=== PATIENT | male | born 1940 | race Caucasian/White ===

== ENCOUNTER 2017-02-04 11:34 | Outpatient (CLI) | payer MEDICARE, OTHER ==
--- NOTE | 2017-02-04 12:27 | Magnetic Resonance Report ---
MRI BRAIN WITHOUT CONTRAST INDICATION: Memory loss. COMPARISON: None similar. FINDINGS: Noncontrast multiplanar and multisequence MRI of the brain demonstrates age appropriate, symmetric mildly enlarged ventricles and mild to moderately enlarged sulci without acute infarct, hemorrhage, mass effect or midline shift. No abnormal extra-axial masses or fluid collections. Normal major intracranial vascular flow voids. Normal posterior fossa structures with symmetric seventh and eighth nerve complexes. Clear paranasal sinuses and mastoid air cells. Mild nasal septal deviation. Left cataract surgery. Normal midline structures without evidence of Chiari malformation. CONCLUSION: No acute intracranial MRI abnormality with age-appropriate atrophy and few other findings, as described. Thank you for the opportunity to participate in this patient's care.
== END 2017-02-04 11:35 | disposition home or self-care (01) ==
LOC: MRI 11:34
PROVIDERS: ATTEND Psychiatry & Neurology Neurology
DX: R41.3 Other amnesia (principal); J34.2 Deviated nasal septum; G31.89 Other specified degenerative diseases of nervous system; I10 Essential (primary) hypertension; E78.00 Pure hypercholesterolemia, unspecified; Z98.42 Cataract extraction status, left eye; Z87.891 Personal history of nicotine dependence
CPT/HCPCS: 70551

== ENCOUNTER 2017-03-06 11:52 | Emergency (ER) | payer MEDICARE ==
[2017-03-06 12:02] VITALS: BP 147/83
[2017-03-06 12:23] LABS: Bilirubin,Urine NEG (Negative); Blood,Urine NEG (Negative); Ketones,Urine NEG (Negative); Leukocyte Esterase,Urine NEG (Negative); Mucus,Urine 2+ /HPF; Nitrite,Urine NEG (Negative); Urobilinogen,Urine < 2.0 mg/dL (<2.0)
--- NOTE | 2017-03-06 18:43 | Emergency Department Report ---
Entered by LENARD CONTRERAS, acting as scribe for KARUNA CLARK NP. ED Back Pain/Injury HPI - General Chief Complaint: Abdominal Pain Stated Complaint: SEVERE R SIDE PAIN Time Seen by Provider: 03/06/17 14:32 Source: patient Mode of arrival: Ambulatory Limitations: No Limitations - History of Present Illness Initial Comments: This is a 76 y/o male, nontoxic, well nourished in appearance, no acute signs of distress with a PMHx of arthritis, diabetes mellitus, and HTN presents to the ED c/o an acute episode of right low back pain that began 2 days ago. Rates pain a 7/10 in severity, which he describes as sharp in quality. Aggravated with movement and alleviated with immobilization. Patient states he currently has no pain. Denies fever, chills, chest pain, headache or dizziness, abdominal pain, nausea, vomiting, dysuria, urgency, frequency, hematura, incontinence, numbness, and tingling. Notes Hx of right low back pain. Reports he's been helping a neighbor move furniture recently, which may have caused his pain. NKDA. HUMMEL Complaint: back pain (right low back) Onset/Timin -: days(s) Similar Symptoms Previously: Yes Place: home Radiation: none Severity: moderate Severity scale (0 -10): 7 Quality: sharp Consistency: intermittent Improves With: immobilization Worsens With: movement Context: while lifting Associated Symptoms: denies other symptoms. denies: confusion, weakness, chest pain, numbness, difficulty walking, cough, difficulty urinating, diaphoresis, incontinence, fever/chills, constipation, headaches, abdominal pain, loss of appetite, malaise, nausea/vomiting, rash, seizure, shortness of breath, syncope - Related Data Home Medications Medication Instructions Recorded Confirmed Last Taken Atorvastatin [Lipitor] 40 mg PO QHS 10/28/13 10/28/13 10/27/13 Ginkgo Biloba 120 mg PO DAILY 10/28/13 10/28/13 10/27/13 Insulin Glargine,Hum.rec.anlog 50 unit SQ QHS 10/28/13 10/28/13 10/27/13 [Lantus Solostar] Insulin Lispro [Humalog Kwikpen] 20 units SQ BID 10/28/13 10/28/13 10/27/13 Lisinopril 10 mg PO QDAY 10/28/13 10/28/13 10/28/13 05:30 metFORMIN [Glucophage] 1,000 mg PO HS 10/28/13 10/28/13 10/27/13 metFORMIN [Glucophage] 500 mg PO QAM 10/28/13 10/28/13 10/27/13 Previous Rx's Medication Instructions Recorded Last Taken Type Acetaminophen [Arthritis Pain 650 mg PO Q6H #20 tablet.er 03/06/17 Unknown Rx Relief] Cyclobenzaprine HCl [Flexeril 5 MG 5 mg PO TID #15 tab 03/06/17 Unknown Rx TAB] Allergies Allergy/AdvReac Type Severity Reaction Status Date / Time No Known Allergies Allergy Verified 10/28/13 06:30 ED Review of Systems Comment: All other systems reviewed and negative Constitutional: denies: chills, fever Eyes: denies: eye pain, eye discharge, vision change ENT: denies: ear pain, throat pain Respiratory: denies: cough, orthopnea, shortness of breath, SOB with exertion, SOB at rest, stridor, wheezing Cardiovascular: denies: chest pain, palpitations, dyspnea on exertion, orthopnea , edema, syncope, paroxysmal nocturnal dyspnea Endocrine: no symptoms reported Gastrointestinal: denies: abdominal pain, nausea, vomiting, diarrhea Genitourinary: denies: urgency, dysuria, frequency, hematuria, discharge, testicular pain, testicular mass Musculoskeletal: back pain (right low back). denies: joint swelling, arthralgia , myalgia Skin: denies: rash, lesions Neurological: denies: headache, weakness, numbness, paresthesias Psychiatric: denies: anxiety, depression Hematological/Lymphatic: denies: easy bleeding, easy bruising ED Past Medical Hx - Past Medical History Previous Medical History?: Yes Hx Hypertension: Yes (2010) Hx Diabetes: Yes Hx Arthritis: Yes - Surgical History Past Surgical History?: Yes Hx Appendectomy: Yes - Social History Smoking Status: Former Smoker Substance Use Type: None - Medications Home Medications: Home Medications Medication Instructions Recorded Confirmed Last Taken Type Atorvastatin [Lipitor] 40 mg PO QHS 10/28/13 10/28/13 10/27/13 History Ginkgo Biloba 120 mg PO DAILY 10/28/13 10/28/13 10/27/13 History Insulin Glargine,Hum.rec.anlog 50 unit SQ QHS 10/28/13 10/28/13 10/27/13 History [Lantus Solostar] Insulin Lispro [Humalog Kwikpen] 20 units SQ BID 10/28/13 10/28/13 10/27/13 History Lisinopril 10 mg PO QDAY 10/28/13 10/28/13 10/28/13 05:30 History metFORMIN [Glucophage] 1,000 mg PO HS 10/28/13 10/28/13 10/27/13 History metFORMIN [Glucophage] 500 mg PO QAM 10/28/13 10/28/13 10/27/13 History Acetaminophen [Arthritis Pain 650 mg PO Q6H #20 tablet.er 03/06/17 Unknown Rx Relief] Cyclobenzaprine HCl [Flexeril 5 MG 5 mg PO TID #15 tab 03/06/17 Unknown Rx TAB] ED Physical Exam - General Limitations: No Limitations General appearance: alert, in no apparent distress - Head Head exam: Present: atraumatic, normocephalic, normal inspection - Eye Eye exam: Present: normal appearance, PERRL, EOMI. Absent: scleral icterus, conjunctival injection, nystagmus, periorbital swelling, periorbital tenderness Pupils: Present: normal accommodation - ENT ENT exam: Present: normal exam, normal orophraynx, mucous membranes moist, TM's normal bilaterally, normal external ear exam - Neck Neck exam: Present: normal inspection, full ROM. Absent: tenderness, meningismus, lymphadenopathy - Respiratory Respiratory exam: Present: normal lung sounds bilaterally. Absent: respiratory distress, wheezes, rales, rhonchi, stridor, chest wall tenderness, accessory muscle use, decreased breath sounds, prolonged expiratory - Cardiovascular Cardiovascular Exam: Present: regular rate, normal rhythm, normal heart sounds. Absent: bradycardia, tachycardia, irregular rhythm, systolic murmur, diastolic murmur, rubs, gallop - GI/Abdominal GI/Abdominal exam: Present: soft, normal bowel sounds. Absent: distended, tenderness, guarding, rebound, rigid - Rectal Rectal exam: Present: deferred - Extremities Exam Extremities exam: Present: normal inspection, full ROM, normal capillary refill. Absent: tenderness, pedal edema, joint swelling, calf tenderness - Back Exam Back exam: Present: normal inspection, full ROM, tenderness (right lumbar paraspinal), paraspinal tenderness (right lumbar). Absent: CVA tenderness (R), CVA tenderness (L), muscle spasm, vertebral tenderness, rash noted - Neurological Exam Neurological exam: Present: alert, oriented X3, CN II-XII intact, normal gait ( ambulatory with assistance of a cane due to right low back pain), reflexes normal. Absent: motor sensory deficit - Psychiatric Psychiatric exam: Present: normal affect, normal mood - Skin Skin exam: Present: warm, dry, intact. Absent: rash ED Course Vital Signs 03/06/17 11:58 Temperature 99 F Pulse Rate 68 Respiratory 24 Rate Blood Pressure 147/83 O2 Sat by Pulse 100 Oximetry - Reevaluation(s) Reevaluation #1: 03/06/17 16:02 Patient is able to speak in full sentences with no signs of distress noted. ED Disposition Clinical Impression: Low back strain Qualifiers: Encounter type: initial encounter Qualified Code(s): S39.012A - Strain of muscle, fascia and tendon of lower back, initial encounter Disposition: DC-01 TO HOME OR SELFCARE Is pt being admited?: No Does the pt Need Aspirin: No Condition: Stable Instructions: Low Back Strain (ED), Acetaminophen (By mouth), Cyclobenzaprine ( By mouth) Additional Instructions: follow-up with your primary care doctor in 3-5 days or if symptoms worsen such as bladder or bowel stability, chest pain, short of breath, numbness or tingling sensation in extremities, headache, dizziness, visual changes, nausea vomiting, or abdominal pain, return back to emergency room as was possible. Take acetaminophen and Flexeril as prescribed. Do not operate heavy machinery while taking Flexeril due to sedation Prescriptions: Acetaminophen [Arthritis Pain Relief] 650 mg PO Q6H #20 tablet.er Cyclobenzaprine HCl [Flexeril 5 MG TAB] 5 mg PO TID #15 tab Referrals: IVETT CARMEN MD [Primary Care Provider] - 3-5 Days PONCHO BENITEZ MD [Staff Physician] - 3-5 Days [facility] [Outside] - 3-5 Days [facility] [Outside] - 3-5 Days SCOTTIE PACHECO MD [Staff Physician] - 3-5 Days This documentation as recorded by the scribe,DIANE,LENARD,accurately reflects the service I personally performed and the decisions made by me,KARUNA CLARK, BARTOLO.
== END 2017-03-06 16:15 | disposition home or self-care (01) ==
LOC: ED 11:52
DX: S39.012A Strain of muscle, fascia and tendon of lower back, initial encounter (principal); I10 Essential (primary) hypertension; E11.9 Type 2 diabetes mellitus without complications; M19.90 Unspecified osteoarthritis, unspecified site; Z87.891 Personal history of nicotine dependence; Z79.4 Long term (current) use of insulin; X58.XXXA Exposure to other specified factors, initial encounter; Y93.89 Activity, other specified; Y92.89 Other specified places as the place of occurrence of the external cause; Y99.8 Other external cause status
CPT/HCPCS: 81001; 99283

== ENCOUNTER 2017-07-28 16:36 | Emergency (ER) | payer MEDICARE ==
[2017-07-28 17:11] VITALS: BP 170/89
[2017-07-28] MEDS ORDERED: NORCO 5/325 PO ONE (21:46)
--- NOTE | 2017-07-28 21:47 | Emergency Department Report ---
ED ENT HPI - General Chief complaint: Dental/Oral Stated complaint: TOOTHACHE Time Seen by Provider: 07/28/17 21:08 Source: patient Mode of arrival: Ambulatory Limitations: No Limitations - History of Present Illness Initial comments: 77M PMH Dmt2, HTN p/w dental cavities presents with complaint of left upper dental pain with small dental abscess for approximately 2 days. Patient denies any difficulty swallowing states it is slightly worse when chewing food. Denies possible blood drainage from mouth. Speaking in full sentences. Denies any fevers or chills. States he took Tylenol at home with minimal relief of toothache. States he has a follow-up with a dentist tomorrow. States he has had a cavity in this region for some time and not yet had it addressed. MD complaint: tooth pain Onset/Timin -: days(s) Location: tooth # 1 - small abscess here Quality: aching Consistency: constant Improves with: none Worsens with: eating Context- Dental: history of dental caries, poor dental care Associated Symptoms: gum swelling, toothache - Related Data Home Medications Medication Instructions Recorded Confirmed Last Taken Atorvastatin [Lipitor] 40 mg PO QHS 10/28/13 10/28/13 10/27/13 Ginkgo Biloba 120 mg PO DAILY 10/28/13 10/28/13 10/27/13 Insulin Glargine,Hum.rec.anlog 50 unit SQ QHS 10/28/13 10/28/13 10/27/13 [Lantus Solostar] Insulin Lispro [Humalog Kwikpen] 20 units SQ BID 10/28/13 10/28/13 10/27/13 Lisinopril 10 mg PO QDAY 10/28/13 10/28/13 10/28/13 05:30 metFORMIN [Glucophage] 1,000 mg PO HS 10/28/13 10/28/13 10/27/13 metFORMIN [Glucophage] 500 mg PO QAM 10/28/13 10/28/13 10/27/13 Previous Rx's Medication Instructions Recorded Last Taken Type Acetaminophen [Arthritis Pain 650 mg PO Q6H #20 tablet.er 03/06/17 Unknown Rx Relief] Cyclobenzaprine HCl [Flexeril 5 MG 5 mg PO TID #15 tab 03/06/17 Unknown Rx TAB] Acetaminophen/Codeine [Tylenol 1 tab PO Q6H PRN #12 tab 07/28/17 Unknown Rx /Codeine # 3 tab] Amoxicillin [Trimox CAP] 500 mg PO Q8H #30 capsule 07/28/17 Unknown Rx Benzocaine [Orajel Liquid 20%] 1 ml MM Q6HR PRN #1 bottle 07/28/17 Unknown Rx Chlorhexidine Mouthwash [Peridex] 15 ml MM BID #1 bottle 07/28/17 Unknown Rx Allergies Allergy/AdvReac Type Severity Reaction Status Date / Time No Known Allergies Allergy Verified 07/28/17 17:09 ED Dental HPI - General Chief complaint: Dental/Oral Stated complaint: TOOTHACHE Time Seen by Provider: 07/28/17 21:08 Source: patient Mode of arrival: Ambulatory Limitations: No Limitations - Related Data Home Medications Medication Instructions Recorded Confirmed Last Taken Atorvastatin [Lipitor] 40 mg PO QHS 10/28/13 10/28/13 10/27/13 Ginkgo Biloba 120 mg PO DAILY 10/28/13 10/28/13 10/27/13 Insulin Glargine,Hum.rec.anlog 50 unit SQ QHS 10/28/13 10/28/13 10/27/13 [Lantus Solostar] Insulin Lispro [Humalog Kwikpen] 20 units SQ BID 10/28/13 10/28/13 10/27/13 Lisinopril 10 mg PO QDAY 10/28/13 10/28/13 10/28/13 05:30 metFORMIN [Glucophage] 1,000 mg PO HS 10/28/13 10/28/13 10/27/13 metFORMIN [Glucophage] 500 mg PO QAM 10/28/13 10/28/13 10/27/13 Previous Rx's Medication Instructions Recorded Last Taken Type Acetaminophen [Arthritis Pain 650 mg PO Q6H #20 tablet.er 03/06/17 Unknown Rx Relief] Cyclobenzaprine HCl [Flexeril 5 MG 5 mg PO TID #15 tab 03/06/17 Unknown Rx TAB] Acetaminophen/Codeine [Tylenol 1 tab PO Q6H PRN #12 tab 07/28/17 Unknown Rx /Codeine # 3 tab] Amoxicillin [Trimox CAP] 500 mg PO Q8H #30 capsule 07/28/17 Unknown Rx Benzocaine [Orajel Liquid 20%] 1 ml MM Q6HR PRN #1 bottle 07/28/17 Unknown Rx Chlorhexidine Mouthwash [Peridex] 15 ml MM BID #1 bottle 07/28/17 Unknown Rx Allergies Allergy/AdvReac Type Severity Reaction Status Date / Time No Known Allergies Allergy Verified 07/28/17 17:09 ED Review of Systems ROS: Stated complaint: TOOTHACHE Other details as noted in HPI Constitutional: denies: chills, fever Eyes: denies: eye pain, eye discharge, vision change ENT: dental pain. denies: ear pain, throat pain Respiratory: denies: cough, shortness of breath, wheezing Cardiovascular: denies: chest pain, palpitations Endocrine: no symptoms reported Gastrointestinal: denies: abdominal pain, nausea, diarrhea Genitourinary: denies: urgency, dysuria Musculoskeletal: denies: back pain, joint swelling, arthralgia Skin: denies: rash, lesions Neurological: denies: headache, weakness, paresthesias Psychiatric: denies: anxiety, depression Hematological/Lymphatic: denies: easy bleeding, easy bruising ED Past Medical Hx - Past Medical History Hx Hypertension: Yes (2010) Hx Diabetes: Yes Hx Arthritis: Yes - Surgical History Hx Appendectomy: Yes - Social History Smoking Status: Never Smoker Substance Use Type: Alcohol - Medications Home Medications: Home Medications Medication Instructions Recorded Confirmed Last Taken Type Atorvastatin [Lipitor] 40 mg PO QHS 10/28/13 10/28/13 10/27/13 History Ginkgo Biloba 120 mg PO DAILY 10/28/13 10/28/13 10/27/13 History Insulin Glargine,Hum.rec.anlog 50 unit SQ QHS 10/28/13 10/28/13 10/27/13 History [Lantus Solostar] Insulin Lispro [Humalog Kwikpen] 20 units SQ BID 10/28/13 10/28/13 10/27/13 History Lisinopril 10 mg PO QDAY 10/28/13 10/28/13 10/28/13 05:30 History metFORMIN [Glucophage] 1,000 mg PO HS 10/28/13 10/28/13 10/27/13 History metFORMIN [Glucophage] 500 mg PO QAM 10/28/13 10/28/13 10/27/13 History Acetaminophen [Arthritis Pain 650 mg PO Q6H #20 tablet.er 03/06/17 Unknown Rx Relief] Cyclobenzaprine HCl [Flexeril 5 MG 5 mg PO TID #15 tab 03/06/17 Unknown Rx TAB] Acetaminophen/Codeine [Tylenol 1 tab PO Q6H PRN #12 tab 07/28/17 Unknown Rx /Codeine # 3 tab] Amoxicillin [Trimox CAP] 500 mg PO Q8H #30 capsule 07/28/17 Unknown Rx Benzocaine [Orajel Liquid 20%] 1 ml MM Q6HR PRN #1 bottle 07/28/17 Unknown Rx Chlorhexidine Mouthwash [Peridex] 15 ml MM BID #1 bottle 07/28/17 Unknown Rx ED Physical Exam - General Limitations: No Limitations General appearance: alert, in no apparent distress - Head Head exam: Present: atraumatic, normocephalic - Eye Eye exam: Present: normal appearance, PERRL, EOMI - ENT ENT exam: Present: mucous membranes moist - Expanded ENT Exam Expanded Teeth exam: Present: dental caries, dental tenderness # 1 - Dental Tenderness (small dental abscess here) - Neck Neck exam: Present: normal inspection - Respiratory Respiratory exam: Present: normal lung sounds bilaterally. Absent: respiratory distress - Cardiovascular Cardiovascular Exam: Present: regular rate, normal rhythm. Absent: systolic murmur, diastolic murmur, rubs, gallop - GI/Abdominal GI/Abdominal exam: Present: soft, normal bowel sounds - Rectal Rectal exam: Present: deferred - Extremities Exam Extremities exam: Present: normal inspection - Back Exam Back exam: Present: normal inspection - Neurological Exam Neurological exam: Present: alert, oriented X3 - Psychiatric Psychiatric exam: Present: normal affect, normal mood - Skin Skin exam: Present: warm, dry, intact, normal color. Absent: rash ED Course Vital Signs 07/28/17 17:09 Temperature 98.6 F Pulse Rate 74 Respiratory 18 Rate Blood Pressure 170/89 O2 Sat by Pulse 98 Oximetry ED Medical Decision Making - Medical Decision Making A/P: dental cavities, toothache, dental abscess 1- amoxicillin ten-day course, Orajel when necessary, Peridex mouthwash daily basis, short course codeine when necessary 2- I provided patient with information for multiple dental clinics to follow up and stressed the importance of dental follow-up as he has multiple cavities that require dental fixation or instrumentation 3- no clinical signs of facial abscess, no Jesús's angina, no induration or cellulitis of floor of mouth or tongue 4- patient able to tolerate by mouth before discharge 5- no signs of facial infection. Advised patient that if he does not take antibiotics with follow-up with a dentist as soon as possible that a can result in potentially serious or dangerous infection to develop in jaw or face. Patient states that he understood these instructions. I advised patient to return to the ED for any persistent unrelenting nausea or vomiting fever or chills or headaches. Critical care attestation.: If time is entered above; I have spent that time in minutes in the direct care of this critically ill patient, excluding procedure time. ED Disposition Clinical Impression: Dental abscess Disposition: DC- TO HOME OR SELFCARE Is pt being admited?: No Does the pt Need Aspirin: No Condition: Stable Instructions: Dental Abscess (ED), Dental Caries (ED), Toothache (ED) Prescriptions: Acetaminophen/Codeine [Tylenol /Codeine # 3 tab] 1 tab PO Q6H PRN #12 tab PRN Reason: Pain Amoxicillin [Trimox CAP] 500 mg PO Q8H #30 capsule Benzocaine [Orajel Liquid 20%] 1 ml MM Q6HR PRN #1 bottle PRN Reason: Toothache Chlorhexidine Mouthwash [Peridex] 15 ml MM BID #1 bottle Referrals: [facility] [Outside] - 3-5 Days Forms: Accompanied Note Time of Disposition: 21:46
== END 2017-07-28 22:05 | disposition home or self-care (01) ==
LOC: ED 16:36
DX: K04.7 Periapical abscess without sinus (principal); I10 Essential (primary) hypertension; E11.9 Type 2 diabetes mellitus without complications
CPT/HCPCS: 99282

== ENCOUNTER 2020-10-27 12:55 | Emergency (ER) | payer MEDICARE ==
--- NOTE | 2020-10-27 13:24 | Event Note ---
ED Screening Note Date of service: 10/27/20 Time: 13:23 ED Screening Note: 80-year-old male patient with history of diabetes, hypertension, and arthritis presents to emergency department with complaints of nontraumatic left lower quadrant abdominal pain starting last night. No history of similar symptoms. No fever. No vomiting or diarrhea. No urinary changes. General: Awake, appropriately interactive, no acute distress. Neck: Supple. Full range of motion intact. Cardiovascular: Normal peripheral perfusion. Pulmonary: No respiratory distress. Patient is speaking normally without use of accessory muscles. Abdomen: Left lower quadrant tenderness without guarding, rigidity, or rebound. No CVA tenderness. No distention. Skin: No apparent rashes or lesions. Neurological: No facial asymmetry. Speech is clear. Follows commands. Patient is alert and oriented. Musculoskeletal: Moves all four extremities spontaneously with normal range of motion. Psych: Cooperative. Appropriate mood and affect. I have greeted and performed a focused rapid initial assessment of this patient. A comprehensive ED assessment and evaluation of the patient, analysis of all test results, and completion of the medical decision-making process will be conducted by additional ED providers. This initial assessment/diagnostic orders/clinical plan/treatment(s) is/are subject to change based on patients health status, clinical progression and re-assessment. Further treatment and workup at subsequent clinical provider's discretion. Patient/guardian urged not to elope from the ED as their condition may be serious if not clinically assessed and managed.
[2020-10-27 14:35] LABS: Basophils % (Auto) 0.6 % (0.0-1.8); Eosinophils # (Auto) 0.4 K/mm3 (0.0-0.4); Eosinophils % (Auto) 6.7 % (0.0-4.3); Hematocrit 43.9 % (35.5-45.6); Hemoglobin 14.9 gm/dl (11.8-15.2); Lymphocytes # (Auto) 1.6 K/mm3 (1.2-5.4); Lymphocytes % (Auto) 28.4 % (13.4-35.0); Mean Corpuscular HGB Conc 34 % (32-34); Mean Corpuscular Volume 93 fl (84-94); Monocytes # (Auto) 0.8 K/mm3 (0.0-0.8); Monocytes % (Auto) 13.8 % (0.0-7.3); Platelet Count 218 K/mm3 (140-440); Red Blood Count 4.72 M/mm3 (3.65-5.03); Red Cell Distribution Width 13.1 % (13.2-15.2)
[2020-10-27 14:58] LABS: Alanine Aminotransferase 11 units/L (7-56); Albumin 3.9 g/dL (3.9-5); BUN/Creatinine Ratio 14; Blood Urea Nitrogen 14 mg/dL (9-20); Calcium 8.6 mg/dL (8.4-10.2); Hemolysis Index 11
--- NOTE | 2020-10-27 16:31 | Emergency Department Report ---
ED General Adult HPI - General Chief complaint: Abdominal Pain Stated complaint: STOMACH PAIN LT SIDE PUI?: No Time Seen by Provider: 10/27/20 16:10 Source: patient, family, RN notes reviewed, old records reviewed Mode of arrival: Ambulatory Limitations: No Limitations - History of Present Illness Initial comments: The patient was evaluated in the emergency department for symptoms described in the history of present illness. He/she was evaluated in the context of the global COVID-19 pandemic, which necessitated consideration that the patient might be at risk for infection with the virus that causes COVID-19. Institutional protocols and algorithms that pertain to the evaluation of patients at risk for COVID-19 are in a state of rapid change based on information released by regulatory bodies including the CDC and federal and state organizations. These policies and algorithms were followed during the patient's care in the emergency department. Please note that these policies, procedures and recommendations changed on a rapid basis. During the history and physical examination, I am chaperoned by nurse NAY WILSON Primary CARE doctor: Dr. Diego aMtthews Past medical history: Distant history of appendectomy, diabetes, hypertension and high cholesterol. The patient is a pleasant 80-year-old gentleman. He presents to the ER today with a complaint of nontraumatic left lower quadrant pain. This started last night. It is now resolved. The patient denies headache, neck pain, chest pain, shortness of breath, testicular pain, nausea, vomiting, diarrhea and hematuria. He denies loss of taste and smell. He states his pain is resolved. He states he feels like he is back to his baseline. -: Sudden, During the night Location: abdomen Radiation: non-radiation Consistency: now resolved Improves with: none Worsens with: none Associated Symptoms: denies other symptoms - Related Data Home Medications Medication Instructions Recorded Confirmed Last Taken Atorvastatin [Lipitor] 40 mg PO QHS 10/28/13 10/28/13 10/27/13 Ginkgo Biloba 120 mg PO DAILY 10/28/13 10/28/13 10/27/13 Insulin Glargine,Hum.rec.anlog 50 unit SQ QHS 10/28/13 10/28/13 10/27/13 [Lantus Solostar] Insulin Lispro [Humalog Kwikpen] 20 units SQ BID 10/28/13 10/28/13 10/27/13 Lisinopril 10 mg PO QDAY 10/28/13 10/28/13 10/28/13 05:30 metFORMIN [Glucophage] 1,000 mg PO HS 10/28/13 10/28/13 10/27/13 metFORMIN [Glucophage] 500 mg PO QAM 10/28/13 10/28/13 10/27/13 Previous Rx's Medication Instructions Recorded Last Taken Type Acetaminophen [Arthritis Pain 650 mg PO Q6H #20 tablet.er 03/06/17 Unknown Rx Relief] Cyclobenzaprine HCl [Flexeril 5 MG 5 mg PO TID #15 tab 03/06/17 Unknown Rx TAB] Acetaminophen/Codeine [Tylenol 1 tab PO Q6H PRN #12 tab 07/28/17 Unknown Rx /Codeine # 3 tab] Amoxicillin [Trimox CAP] 500 mg PO Q8H #30 capsule 07/28/17 Unknown Rx Benzocaine [Orajel Liquid 20%] 1 ml MM Q6HR PRN #1 bottle 07/28/17 Unknown Rx Chlorhexidine Mouthwash [Peridex] 15 ml MM BID #1 bottle 07/28/17 Unknown Rx Allergies Allergy/AdvReac Type Severity Reaction Status Date / Time No Known Allergies Allergy Verified 10/27/20 13:21 ED Review of Systems ROS: Stated complaint: STOMACH PAIN LT SIDE Other details as noted in HPI Comment: All other systems reviewed and negative Gastrointestinal: abdominal pain ED Past Medical Hx - Past Medical History Hx Hypertension: Yes (2010) Hx Diabetes: Yes Hx Arthritis: Yes - Surgical History Hx Appendectomy: Yes - Social History Smoking Status: Never Smoker Substance Use Type: None - Medications Home Medications: Home Medications Medication Instructions Recorded Confirmed Last Taken Type Atorvastatin [Lipitor] 40 mg PO QHS 10/28/13 10/28/13 10/27/13 History Ginkgo Biloba 120 mg PO DAILY 10/28/13 10/28/13 10/27/13 History Insulin Glargine,Hum.rec.anlog 50 unit SQ QHS 10/28/13 10/28/13 10/27/13 History [Lantus Solostar] Insulin Lispro [Humalog Kwikpen] 20 units SQ BID 10/28/13 10/28/13 10/27/13 History Lisinopril 10 mg PO QDAY 10/28/13 10/28/13 10/28/13 05:30 History metFORMIN [Glucophage] 1,000 mg PO HS 10/28/13 10/28/13 10/27/13 History metFORMIN [Glucophage] 500 mg PO QAM 10/28/13 10/28/13 10/27/13 History Acetaminophen [Arthritis Pain 650 mg PO Q6H #20 tablet.er 03/06/17 Unknown Rx Relief] Cyclobenzaprine HCl [Flexeril 5 MG 5 mg PO TID #15 tab 03/06/17 Unknown Rx TAB] Acetaminophen/Codeine [Tylenol 1 tab PO Q6H PRN #12 tab 07/28/17 Unknown Rx /Codeine # 3 tab] Amoxicillin [Trimox CAP] 500 mg PO Q8H #30 capsule 07/28/17 Unknown Rx Benzocaine [Orajel Liquid 20%] 1 ml MM Q6HR PRN #1 bottle 07/28/17 Unknown Rx Chlorhexidine Mouthwash [Peridex] 15 ml MM BID #1 bottle 07/28/17 Unknown Rx ED Physical Exam - General Limitations: No Limitations General appearance: alert, in no apparent distress, obese - Head Head exam: Present: atraumatic, normocephalic - Eye Eye exam: Present: normal appearance, EOMI. Absent: nystagmus - ENT ENT exam: Present: normal exam, normal orophraynx, mucous membranes moist, normal external ear exam - Neck Neck exam: Present: normal inspection, full ROM. Absent: tenderness, meningismus - Respiratory Respiratory exam: Present: normal lung sounds bilaterally. Absent: respiratory distress, wheezes, rales, rhonchi, stridor, decreased breath sounds - Cardiovascular Cardiovascular Exam: Present: regular rate, normal rhythm, normal heart sounds. Absent: bradycardia, tachycardia, irregular rhythm, systolic murmur, diastolic murmur, rubs, gallop - GI/Abdominal GI/Abdominal exam: Present: soft, normal bowel sounds. Absent: distended, tenderness, guarding, rigid, pulsatile mass - Rectal Rectal exam: Present: deferred - exam: Present: normal inspection, other (There is normal testicular lie. There is normal cremasteric reflex. There is no testicular tenderness. There is no testicular swelling). Absent: testicular tenderness External exam: Present: normal external exam, other (Chaperoned by NAY WILSON) - Extremities Exam Extremities exam: Present: normal inspection, full ROM, other (2+ pulses noted in the bilateral upper and lower extremities. There is no palpable cord. negative Homans sign. Muscular compartments are soft. The pelvis is stable.). Absent: calf tenderness - Back Exam Back exam: Present: normal inspection, full ROM. Absent: tenderness, CVA tenderness (R), CVA tenderness (L), paraspinal tenderness, vertebral tenderness - Neurological Exam Neurological exam: Present: alert, oriented X3, normal gait, other (No facial droop. Tongue midline. Extraocular movements intact bilaterally. Facial sensation intact to light touch in V1, V2, V3 distribution bilaterally. 5 and a 5 strength in 4 extremities. Sensation intact to light touch in 4 extremities.). Absent: motor sensory deficit - Psychiatric Psychiatric exam: Present: normal affect, normal mood - Skin Skin exam: Present: warm, dry, intact, normal color. Absent: rash ED Course Vital Signs 10/27/20 10/27/20 10/27/20 13:24 13:26 16:14 Temperature 98.2 F Pulse Rate 72 55 L Respiratory 20 14 Rate Blood Pressure 144/85 O2 Sat by Pulse 100 97 Oximetry 10/27/20 16:16 Temperature Pulse Rate 57 L Respiratory 15 Rate Blood Pressure 130/62 O2 Sat by Pulse Oximetry - Reevaluation(s) Reevaluation #1: 10/27/20 17:13 Differential diagnosis, including but not limited to: Colitis, diverticulitis, constipation, renal colic, perforated viscus, obstruction Assessment and plan: 80-year-old gentleman, who was afebrile, with reassuring vital signs, with a complaint of left lower quadrant pain. The patient has a soft benign abdomen, with an unremarkable and normal genitourinary exam, with no evidence of hernia, and he does not appear to be in any acute distress. Laboratory studies unremarkable for acute pathology, incidental hyperglycemia asymptomatic, and patient and are counseled on this finding, and he can follow-up with his outpatient primary care doctor. Given advanced age, complaint of left lower quadrant pain, we will obtain a CT scan of the abdomen pelvis without IV contrast. We will also obtain EKG. I discussed this plan of care with the patient and his , who have verbalized understanding, and whom are amenable to this plan of care. Reevaluation #2: 10/27/20 17:32 CT scan of the abdomen pelvis negative for acute findings. Patient resting comfortably in stretcher and in no acute distress, and denies physical pain. He does not appear to have an emergent condition present at this time. He is smith itable to follow-up with his primary care doctor. - Pulse Oximetry Interpretation Digit-Finger Initial Pulse Oximetry Readin O2 Sat by Pulse Oximetry: 99 Actions Taken: none ED Medical Decision Making - Lab Data Result diagrams: 10/27/20 14:02 10/27/20 14:02 Vital Signs 10/27/20 10/27/20 10/27/20 13:24 13:26 16:14 Temperature 98.2 F Pulse Rate 72 55 L Respiratory 20 14 Rate Blood Pressure 144/85 O2 Sat by Pulse 100 97 Oximetry 10/27/20 16:16 Temperature Pulse Rate 57 L Respiratory 15 Rate Blood Pressure 130/62 O2 Sat by Pulse Oximetry Lab Results 10/27/20 10/27/20 10/27/20 Range/Units 14:02 14:02 16:14 WBC 5.6 (4.5-11.0) K/mm3 RBC 4.72 (3.65-5.03) M/mm3 Hgb 14.9 (11.8-15.2) gm/dl Hct 43.9 (35.5-45.6) % MCV 93 (84-94) fl MCH 32 (28-32) pg MCHC 34 (32-34) % RDW 13.1 L (13.2-15.2) % Plt Count 218 (140-440) K/mm3 Lymph % (Auto) 28.4 (13.4-35.0) % [place] % (Auto) 13.8 H (0.0-7.3) % Eos % (Auto) 6.7 H (0.0-4.3) % Baso % (Auto) 0.6 (0.0-1.8) % Lymph # (Auto) 1.6 (1.2-5.4) K/mm3 [place] # (Auto) 0.8 (0.0-0.8) K/mm3 Eos # (Auto) 0.4 (0.0-0.4) K/mm3 Baso # (Auto) 0.0 (0.0-0.1) K/mm3 Seg Neutrophils % 50.5 (40.0-70.0) % Seg Neutrophils # 2.8 (1.8-7.7) K/mm3 Sodium 134 L (137-145) mmol/L Potassium 3.8 (3.6-5.0) mmol/L Chloride 100.4 (98-107) mmol/L Carbon Dioxide 24 (22-30) mmol/L Anion Gap 13 mmol/L BUN 14 (9-20) mg/dL Creatinine 1.0 (0.8-1.3) mg/dL Estimated GFR > 60 ml/min BUN/Creatinine Ratio 14 % Glucose 227 H (75-100) mg/dL Calcium 8.6 (8.4-10.2) mg/dL Magnesium 2.20 (1.7-2.3) mg/dL Total Bilirubin 1.50 H (0.1-1.2) mg/dL AST 13 (5-40) units/L ALT 11 (7-56) units/L Alkaline Phosphatase 121 (35-129) units/L Total Protein 7.6 (6.3-8.2) g/dL Albumin 3.9 (3.9-5) g/dL Albumin/Globulin Ratio 1.1 % Urine Color Straw (Yellow) Urine Turbidity Clear (Clear) Urine pH 6.0 (5.0-7.0) Ur Specific [place] 1.006 (1.003-1.030) Urine Protein <15 mg/dl (Negative) mg/dL Urine Glucose (UA) >=500 (Negative) mg/dL Urine Ketones Neg (Negative) mg/dL Urine Blood Neg (Negative) Urine Nitrite Neg (Negative) Urine Bilirubin Neg (Negative) Urine Urobilinogen < 2.0 (<2.0) mg/dL Ur Leukocyte Esterase Neg (Negative) Urine WBC (Auto) 1.0 (0.0-6.0) /HPF Urine RBC (Auto) < 1.0 (0.0-6.0) /HPF U Epithel Cells (Auto) < 1.0 (0-13.0) /HPF Urine Mucus Few /HPF - EKG Data -: EKG Interpreted by Mn EKG shows normal: sinus rhythm Rate: normal - EKG Data When compared to previous EKG there are: previous EKG unavailable 10/27/20 17:31 EKG interpreted at 17: 23 Sinus rhythm, bradycardia, normal axis, normal intervals, left ventricular hypertrophy. Low voltage in the inferior leads. This is an abnormal EKG. Patient denies chest pain. Patient EKG is not consistent with a STEMI - Radiology Data Radiology results: pending, report reviewed, image reviewed Patient: MARLINE ROMAN MR#: [id number] : 1940 Acct:[id number] Age/Sex: 80 / M ADM Date: 10/27/20 Loc: ED Attending Dr: Ordering Physician: ARACELY TORRES MD Date of Service: 10/27/20 Procedure(s): CT abdomen pelvis wo con Accession Number(s): [id number] cc: ARACELY TORRES MD CT OF THE ABDOMEN AND PELVIS WITHOUT CONTRAST INDICATION / CLINICAL INFORMATION: Left lower quadrant pain. TECHNIQUE: All CT scans at this location are performed using CT dose reduction for ALARA by means of automated exposure control. COMPARISON: None available. FINDINGS: ABDOMEN: There are numerous small calcified granulomata scattered throughout the liver and spleen. There is old calcified granulomatous disease in both lower lung zones. The gallbladder, bile ducts, pancreas, adrenal glands, kidneys and bowel demonstrate no significant abnormality. No adenopathy is seen. The right iliopsoas muscle is atrophic compared to the left. There is moderate coronary artery calcification. PELVIS: The distal ureters and urinary bladder are normal. The prostate gland is mildly enlarged. The seminal vesicles are normal in size. There are scattered left colonic diverticula without acute inflammation. The appendix is not seen and has probably been removed. No abnormal mass or fluid collection is present. I do not identify a hernia. There is moderate spondylosis, most prominent at L4-5. IMPRESSION: No acute abnormality. Signer Name: Keith Chavez MD Signed: 10/27/2020 5:21 PM Workstation Name: [id number] Transcribed By: RT Dictated By: Keith Chavez MD Electronically Authenticated By: Keith Chavez MD Signed Date/Time: 10/27/20 172 DD/ 16 Critical care attestation.: If time is entered above; I have spent that time in minutes in the direct care of this critically ill patient, excluding procedure time. ED Disposition Clinical Impression: Left lower quadrant abdominal pain, Blood glucose elevated Disposition: DC-01 TO HOME OR SELFCARE Is pt being admited?: No Does the pt Need Aspirin: No Condition: Good Instructions: Abdominal Pain, Adult, Hyperglycemia Additional Instructions: Please continue current outpatient medications. Please drink 4 cups of water per day. Patient may take [id number] Tylenol/acetaminophen as needed for pain. Please follow-up with your primary care doctor within the next week. Continue current outpatient diabetic medications. Please have your primary care doctor contact medical records department to follow-up on nonemergent incidental abnormal findings on laboratory studies and CT scan of the abdomen pelvis, which do not require emergent therapy or intervention at this time. Please return to the emergency room right away with new pain, worsened pain, migration of pain, projectile vomiting, change in mental status, confusion, inability to tolerate liquid feeds, new, worsened or different symptoms not present on the initial emergency room evaluation. Referrals: DIEGO MATTHEWS MD [Staff Physician] - 3-5 Days
[2020-10-27 16:43] LABS: Bilirubin,Urine NEG (Negative); Blood,Urine NEG (Negative); Color,Urine Straw (Yellow); Mucus,Urine FEW /HPF; Protein,Urine <15 mg/dL mg/dL (Negative); RBC,Urine < 1.0 /HPF (0.0-6.0); Urobilinogen,Urine < 2.0 mg/dL (<2.0)
--- NOTE | 2020-10-27 17:26 | Cat Scan Report ---
CT OF THE ABDOMEN AND PELVIS WITHOUT CONTRAST INDICATION / CLINICAL INFORMATION: Left lower quadrant pain. TECHNIQUE: All CT scans at this location are performed using CT dose reduction for ALARA by means of automated exposure control. COMPARISON: None available. FINDINGS: ABDOMEN: There are numerous small calcified granulomata scattered throughout the liver and spleen. Th ere is old calcified granulomatous disease in both lower lung zones. The gallbladder, bile ducts, kumar creas, adrenal glands, kidneys and bowel demonstrate no significant abnormality. No adenopathy is see n. The right iliopsoas muscle is atrophic compared to the left. There is moderate coronary artery kurt cification. PELVIS: The distal ureters and urinary bladder are normal. The prostate gland is mildly enlarged. The seminal vesicles are normal in size. There are scattered left colonic diverticula without acute infl ammation. The appendix is not seen and has probably been removed. No abnormal mass or fluid collectio n is present. I do not identify a hernia. There is moderate spondylosis, most prominent at L4-5. IMPRESSION: No acute abnormality. Signer Name: Keith Chavez MD Signed: 10/27/2020 5:21 PM Workstation Name: [id number]
[2020-10-27 18:11] VITALS: BP 145/76
--- NOTE | 2020-10-28 11:30 | Electrocardiograph Report ---
[facility] Test Date: 2020-10-27 Test Time: 17:23:57 Pat Name: MARLINE ROMAN Department: Room: Gender: M [employer] [place]: TV : 1940 Requested By: ARACELY TORRES Order Number: [id number] Reading MD: Howard Oneal Measurements Intervals [place] Rate: 51 P: 61 IA: 193 QRS: 31 QRSD: 80 T: 51 QT: 469 QTc: 430 Interpretive Statements Sinus bradycardia No previous ECG available for comparison Electronically Signed On 10-28-2020 11:30:30 EDT by Howard Oneal
== END 2020-10-27 18:45 | disposition home or self-care (01) ==
LOC: ED 12:55
DX: R10.32 Left lower quadrant pain (principal); E11.9 Type 2 diabetes mellitus without complications; I10 Essential (primary) hypertension; M19.91 Primary osteoarthritis, unspecified site; Z90.49 Acquired absence of other specified parts of digestive tract; Z79.4 Long term (current) use of insulin; Z79.2 Long term (current) use of antibiotics; Z79.899 Other long term (current) drug therapy
CPT/HCPCS: 36415; 74176; 80053; 81001; 83735; 85025; 93005